=== PATIENT | male | born 1990 ===

== ENCOUNTER 2018-02-01 16:46 | Emergency (ER) | payer MEDICAID ==
[2018-02-01] MEDS ORDERED: HYDROcodone/Acetaminophen 5/325 mg Tablet ONE (17:13)
--- NOTE | 2018-02-01 17:51 | RAD ---
SINGLE VIEW CHEST: HISTORY: Right-sided chest pain that is worse with coughing. COMPARISON: None. FINDINGS: Single view of the chest show normal sized cardiomediastinal silhouette. There is no evidence of cons olidation, mass, or pleural effusion. The bones are unremarkable. IMPRESSION: No evidence of acute cardiopulmonary disease. POS: [facility]
== END 2018-02-01 17:48 | disposition home or self-care (01) ==
LOC: ERS 16:46
DX: R07.9 Chest pain, unspecified (principal); Z87.891 Personal history of nicotine dependence
CPT/HCPCS: 71045